=== PATIENT | female | born 1995 | race Hispanic/Latino ===

== ENCOUNTER 2024-07-02 07:58 | Emergency (ER) | payer OTHER ==
[~2024-07-02] VITALS: Ht 160 cm; Wt 80.4 kg
[2024-07-02 08:44] VITALS: PULSE 78; RESP 16; TEMP 98.3; O2SAT 97
== END 2024-07-02 08:44 | disposition home or self-care (01) ==
LOC: FSED 08:02
DX: T19.2XXA Foreign body in vulva and vagina, initial encounter (principal); F17.210 Nicotine dependence, cigarettes, uncomplicated
CPT/HCPCS: 99283

== ENCOUNTER 2025-02-01 15:14 | Emergency (ER) | payer OTHER ==
[~2025-02-01] VITALS: Ht 160 cm; Wt 82.6 kg
[2025-02-01 15:29] VITALS: TEMP 98.2
[2025-02-01] MEDS: ACETAMINOPHEN 325 MG TAB PO ONE (16:31)
[2025-02-01 18:34] VITALS: PULSE 77; RESP 16
[2025-02-01 19:56] VITALS: BP 122/75; RESP 18; O2SAT 97
== END 2025-02-01 19:58 | disposition home or self-care (01) ==
LOC: FSED 15:20
DX: O26.892 Other specified pregnancy related conditions, second trimester (principal); M24.29 Disorder of ligament, other specified site; O21.0 Mild hyperemesis gravidarum; R45.82 Worries
CPT/HCPCS: 76805; 80053; 81003; 81025; 85025; 99283